=== PATIENT | female | born 1965 | race African-American/Black ===

== ENCOUNTER 2025-11-22 10:01 | Emergency (ER) | payer MEDICARE ==
[~2025-11-22] VITALS: Ht 165.1 cm; Wt 102.0 kg
[2025-11-22 10:09] VITALS: O2SAT 100
[2025-11-22] MEDS: IBUPROFEN 800MG TABLET PO ONE (11:54)
[2025-11-22 12:03] LABS: PLATELET 193 x1000/uL (130-400); RED BLOOD CELL COUNT 3.56 mill/uL (4.2-5.4); RED CELL DISTRIBUTION WIDTH 16.8 % (11.6-14.6)
[2025-11-22 12:22] LABS: CREATININE 2.1 mg/dL (0.6-1.0); UREA NITROGEN BLOOD 16.0 mg/dL (9-23)
[2025-11-22 12:45] VITALS: BP 173/76; PULSE 65; RESP 16; TEMP 36.9; O2SAT 100
== END 2025-11-22 12:52 | disposition home or self-care (01) ==
LOC: ER 10:01
DX: B34.9 Viral infection, unspecified (principal); M79.10 Myalgia, unspecified site; E78.00 Pure hypercholesterolemia, unspecified; I10 Essential (primary) hypertension; Z90.711 Acquired absence of uterus with remaining cervical stump
CPT/HCPCS: 36415; 80048; 82550; 85027; 99283